=== PATIENT | female | born 1965 | race Caucasian/White ===

== ENCOUNTER 2020-07-17 16:23 | Observation (INO) ==
[~2020-07-17 16:23] MED LIST: DIPRIVAN VIAL ONE; NEOSTIGMINE INJ ONE; NORCURON INJ 10 MG VIAL ONE; QUELICIN (OR ANECTINE) ONE; ROBINUL ONE; SUPRANE ONE; VERSED ONE; ZOFRAN INJ 4 MG VIAL ONE
--- NOTE | 2020-07-17 18:27 | DR.H&P ---
H&P - History & Physical for Day of: H&P Date: 07/17/20 - Chief Complaint Chief Complaint: RIGHT UPPER ABDOMINAL PAIN, N/V, "GALLSTONES" - History of Present Illness History of Present Illness: PT IS [id number] ADMITTED WITH CO INTRACTABLE RIGHT UPPER ABDOMINAL PAIN RADIATES TO RIGHT SIDE MID BACK. PT REPORTS SHE HAD NOT BEEN ABLE TO EAT SINCE WEDNESDAY. PT HAD US CONFIRMING GALLSTONES WITH CHOLECYSTITIS. PT DENIES ANY KNOWN CARDIAC HISTORY OR DIABETES. PT ADMITTED FOR TREATMENT OF ACUTE ILLNESS, SURGICAL CONSULT. - Past Medical History Past Medical History: Arthritis - Family History Family Medical History: Diabetes Mellitus, Hypertension - Social History Does patient currently use any type of tobacco product: Yes Have you used tobacco products in the last 12 months: Yes Type of Tobacco Use: Cigarettes Does any household member use tobacco: No Alcohol Use: None Drug Use: None Risks, benefits, and alternatives of opioids discussed: No Prescription drug monitoring program results: PDMP reviewed and no concerns identified - Review of Systems Constitutional: No Symptoms Reported Eyes: No Symptoms Reported ENT: No Symptoms Reported Respiratory: No Symptoms Reported Cardiovascular: No Symptoms Reported Gastrointestinal: Nausea, Vomiting, Abdominal Pain Genitourinary: No Symptoms Reported Musculoskeletal: No Symptoms Reported Skin: No Symptoms Reported Neurological: No Symptoms Reported Oriented: Normal Eyes: Normal Ear: Normal Nose: Normal Throat: Normal Respiratory: RLL Diminished, LLL Diminished Cardiovascular: Normal, Irregular Auscultation: Bowel Sounds: Normal Palpation: Normal Tenderness: RUQ, Moderate Skin: Decreased Turgur Musculoskeletal: Normal Psychiatric: Anxiety Affect: Anxious Speech Pattern: Clear, Appropriate - Assessment/Plan (1) Acute cholecystitis Status: Acute Plan: ADMIT, NPO AFTER MIDNIGHT. IV HYDRATION CXR ON ADMISSION, PPI. CONSULT DR MATHUR, ADMISSION LABS CBC CMP AMYLASE LIPASE. UA
[2020-07-17 20:40] LABS: BASOPHILS # (AUTO) 0.1 X10^3/uL (0.0-0.1); BASOPHILS % (AUTO) 0.6 % (0.2-1.0); EOSINOPHILS # (AUTO) 0.1 x10^3/uL (0.0-0.2); EOSINOPHILS % (AUTO) 0.5 % (0.9-2.9); HEMATOCRIT 46.1 % (36.0-47.0); HEMOGLOBIN 15.5 g/dL (12.0-16.0); LYMPHOCYTES # (AUTO) 1.7 X10^3/uL (1.3-2.9); LYMPHOCYTES % (AUTO) 16.6 % (21.0-51.0); MEAN CORPUSCULAR HEMOGLOBIN 31.9 pg (27.0-34.0); MEAN CORPUSCULAR HGB CONC 33.7 g/dL (33.0-35.0); MEAN CORPUSCULAR VOLUME 94.7 fL (80.0-100.0); MEAN PLATELET VOLUME 8.1 fL (7.4-11.0); MONOCYTES # (AUTO) 0.5 x10^3/uL (0.3-0.8); MONOCYTES % (AUTO) 4.8 % (0.0-13.0); NEUTROPHILS # (AUTO) 8.1 x10^3/uL (2.2-4.8); NEUTROPHILS % (AUTO) 77.5 % (42.0-75.0); PLATELET COUNT 267 X10^3/uL (150.0-450.0); RED BLOOD COUNT 4.87 X10^6/uL (3.5-5.4); RED CELL DISTRIBUTION WIDTH 14.4 % (11.6-16.5); WHITE BLOOD COUNT 10.4 X10^3/uL (3.6-10.0)
[2020-07-17 20:48] LABS: ALANINE AMINOTRANSFERASE 18 Units/L (12-78); ALBUMIN 3.9 g/dL (3.4-5.0); ALKALINE PHOSPHATASE 92 Units/L (46-116); AMYLASE 41 Units/L (25-115); ASPARTATE AMINO TRANSFERASE 14 Units/L (15-37); BLOOD UREA NITROGEN 11 mg/dL (7-18); CALCIUM 9.4 mg/dL (8.5-10.1); CARBON DIOXIDE 27.1 mmol/L (21-32); CHLORIDE 104 mmol/L (98-107); CREATININE 0.91 mg/dL (0.55-1.02); LIPASE 110 Units/L (73-393); SODIUM 141 mmol/L (136-145); TOTAL PROTEIN 7.8 g/dL (6.4-8.2); eGFR NON BLACK RACES > 60 (>60)
[2020-07-17] MEDS ORDERED: NS 1000 ML 1,000 ML ONE (21:09)
--- NOTE | 2020-07-17 21:35 | RAD ---
EXAM: CHEST X-RAYHISTORY: Screening CXR. Preoperative evaluation for cardiac and respiratory status.TECHNIQUE: AP chest x-ray dated 07/17/2020 at 6:06 PM.COMPARISON: None available.FINDINGS:The heart size and mediastinum are within normal limits. The lung ortega and costophrenic angles are clear. There is no acute parenchymal infiltrate, pleural effusion, or pneumothorax seen. The visualized bony structures are within normal limits.IMPRESSION:1. No evidence for acute cardiopulmonary disease seen.Electronically signed by: Tico West (Jul 17, 2020 21:34:06)
[2020-07-17] MEDS: NS 1000 ML 1,000 ML IV SCH (21:40)
[2020-07-17] MEDS: TYLENOL 325 MG TAB PO PRN (22:40)
[2020-07-17] MEDS ORDERED: NICOTINE PATCH TD ONE (23:32)
[2020-07-18 03:13] VITALS: BMI 38.0
[2020-07-18 05:39] LABS: BASOPHILS % (AUTO) 0.6 % (0.2-1.0); EOSINOPHILS # (AUTO) 0.1 x10^3/uL (0.0-0.2); EOSINOPHILS % (AUTO) 1.4 % (0.9-2.9); HEMATOCRIT 42.3 % (36.0-47.0); HEMOGLOBIN 14.2 g/dL (12.0-16.0); LYMPHOCYTES # (AUTO) 1.6 X10^3/uL (1.3-2.9); LYMPHOCYTES % (AUTO) 23.3 % (21.0-51.0); MEAN CORPUSCULAR HEMOGLOBIN 31.7 pg (27.0-34.0); MEAN CORPUSCULAR HGB CONC 33.5 g/dL (33.0-35.0); MEAN CORPUSCULAR VOLUME 94.8 fL (80.0-100.0); MEAN PLATELET VOLUME 8.6 fL (7.4-11.0); MONOCYTES # (AUTO) 0.5 x10^3/uL (0.3-0.8); MONOCYTES % (AUTO) 7.2 % (0.0-13.0); NEUTROPHILS # (AUTO) 4.7 x10^3/uL (2.2-4.8); NEUTROPHILS % (AUTO) 67.5 % (42.0-75.0); PLATELET COUNT 242 X10^3/uL (150.0-450.0); RED BLOOD COUNT 4.47 X10^6/uL (3.5-5.4); RED CELL DISTRIBUTION WIDTH 14.3 % (11.6-16.5); WHITE BLOOD COUNT 6.9 X10^3/uL (3.6-10.0)
[2020-07-18 05:42] LABS: BILIRUBIN,URINE NEGATIVE (NEGATIVE); BLOOD/HEMOGLOBIN,URINE NEGATIVE (NEGATIVE); GLUCOSE, URINE NEGATIVE (NEGATIVE); KETONES,URINE NEGATIVE (NEGATIVE); LEUKOCYTE ESTERASE ,URINE NEGATIVE (NEGATIVE); NITRITES,URINE NEGATIVE (NEGATIVE); PROTEIN,URINE NEGATIVE (NEGATIVE); UROBILINOGEN,URINE NORMAL (NORMAL)
[2020-07-18 05:45] LABS: ALANINE AMINOTRANSFERASE 16 Units/L (12-78); ALBUMIN 3.1 g/dL (3.4-5.0); ALKALINE PHOSPHATASE 77 Units/L (46-116); ASPARTATE AMINO TRANSFERASE 18 Units/L (15-37); BLOOD UREA NITROGEN 13 mg/dL (7-18); CALCIUM 8.8 mg/dL (8.5-10.1); CARBON DIOXIDE 25.6 mmol/L (21-32); CHLORIDE 108 mmol/L (98-107); COR CA(FOR HYPOALB) 9.5 mg/dL (8.5-10.1); CREATININE 0.89 mg/dL (0.55-1.02); SODIUM 142 mmol/L (136-145); TOTAL PROTEIN 6.5 g/dL (6.4-8.2); eGFR NON BLACK RACES > 60 (>60)
[2020-07-18 05:46] LABS: APPEARANCE,URINE CLEAR (CLEAR); COLOR,URINE PALE YELLOW (YELLOW)
[2020-07-18] MEDS: NS 1000 ML 1,000 ML IV SCH ×3 (08:59→23:26)
[2020-07-18] MEDS: NICOTINE PATCH TD SCH (09:00)
[2020-07-18] MEDS ORDERED: FENTANYL INJ 250 mcg ONE (09:44)
[2020-07-18] MEDS ORDERED: LR 1000 ML IV 1,000 ML IV ONE (10:04)
[2020-07-18] MEDS ORDERED: BACTROBAN TOPICAL OINT ONE (11:01)
[2020-07-18] MEDS ORDERED: REGLAN INJ 10 MG VIAL IVP PRN (11:17)
[2020-07-18] MEDS ORDERED: PHENERGAN INJ 25 MG IM PRN (11:17)
[2020-07-18] MEDS ORDERED: ZOFRAN INJ 4 MG VIAL IVP PRN (11:17)
[2020-07-18] MEDS ORDERED: BENADRYL INJ 50 MG VIAL IVP PRN (11:17)
[2020-07-18] MEDS: DILAUDID INJ IVP PRN ×6 (11:23→20:56)
[2020-07-18] MEDS ORDERED: ZOFRAN INJ 4 MG VIAL ONE (20:45)
[2020-07-18] MEDS: ZOFRAN INJ 4 MG VIAL IVP PRN (20:56)
[2020-07-19] MEDS: TYLENOL 325 MG TAB PO PRN (03:02)
[2020-07-19] MEDS: ZOFRAN INJ 4 MG VIAL IVP PRN ×2 (03:06→08:52)
[2020-07-19 08:03] VITALS: BP 140/73
[2020-07-19] MEDS ORDERED: MOTRIN TAB 800 MG PO PRN (08:05)
[2020-07-19] MEDS: NICOTINE PATCH TD SCH (08:51)
[2020-07-19] MEDS ORDERED: DILAUDID INJ IVP PRN (09:00)
--- NOTE | 2020-07-19 09:18 | DR.PROGNOT ---
Hospital Progress Notes - Progress Note for Day of: Progress Note Date: 07/19/20 - Chief Complaint Chief Complaint: s/p Lap nini . moderate abdominal pain and nausea . CBC and LFT are normal . afebrile - Past Medical Family Social History Past Med/Fam/Surg Hx: No changes since H&P Allergies: Allergies amoxicillin Allergy (Verified 07/17/20 21:14) clindamycin Allergy (Verified 07/17/20 21:14) codeine Allergy (Verified 07/17/20 21:14) hydrocodone [From Lortab] Allergy (Verified 07/17/20 21:14) oxycodone [From Percocet] Allergy (Verified 07/17/20 21:14) Penicillins Allergy (Verified 07/17/20:14) sulfamethoxazole [From Bactrim] Adverse Reaction (Verified 07/17/20 21:14) CAUSES ITCHING trimethoprim [From Bactrim] Adverse Reaction (Verified 07/17/20 21:14) CAUSES ITCHING - Review Of Systems ROS: No change since H&P - Vital Signs Vital Signs: Temperature 98.7 F Pulse Rate [Left Brachial] 64 Pulse Rate [Right Radial] 76 Pulse Rate 74 Respiratory Rate 20 Blood Pressure [Left Arm] 140/73 Blood Pressure [Right Arm] 169/83 Blood Pressure 138/79 O2 Sat by Pulse Oximetry 97 - Physical Exam Oriented: Normal Eyes: Normal Ear: Normal Nose: Normal Throat: Normal Cardiovascular: Normal, Irregular GI:Auscultation: Normal GI:Palpation: Normal GI: Tenderness: RUQ, Moderate Skin: Decreased Turgur Musculoskeletal: Normal Psychiatric: Anxiety Mood Description: Calm Affect: Anxious Speech Pattern: Clear, Appropriate - Laboratory and Diagnostics Result Diagrams: 07/18/20 04:30 07/18/20 04:30 Labs: Laboratory WBC 6.9 X10^3/uL (3.6-10.0) 07/18/20 04:30 RBC 4.47 X10^6/uL (3.5-5.4) 07/18/20 04:30 Hgb 14.2 g/dL (12.0-16.0) 07/18/20 04:30 Hct 42.3 % (36.0-47.0) 07/18/20 04:30 MCV 94.8 fL (80.0-100.0) 07/18/20 04:30 MCH 31.7 pg (27.0-34.0) 07/18/20 04:30 MCHC 33.5 g/dL (33.0-35.0) 07/18/20 04:30 RDW 14.3 % (11.6-16.5) 07/18/20 04:30 Plt Count 242 X10^3/uL (150.0-450.0) 07/18/20 04:30 MPV 8.6 fL (7.4-11.0) 07/18/20 04:30 Neut % (Auto) 67.5 % (42.0-75.0) 07/18/20 04:30 Lymph % (Auto) 23.3 % (21.0-51.0) 07/18/20 04:30 Stone % (Auto) 7.2 % (0.0-13.0) 07/18/20 04:30 Eos % (Auto) 1.4 % (0.9-2.9) 07/18/20 04:30 Baso % (Auto) 0.6 % (0.2-1.0) 07/18/20 04:30 Neut # (Auto) 4.7 x10^3/uL (2.2-4.8) 07/18/20 04:30 Lymph # (Auto) 1.6 X10^3/uL (1.3-2.9) 07/18/20 04:30 Stone # (Auto) 0.5 x10^3/uL (0.3-0.8) 07/18/20 04:30 Eos # (Auto) 0.1 x10^3/uL (0.0-0.2) 07/18/20 04:30 Baso # (Auto) 0.0 X10^3/uL (0.0-0.1) 07/18/20 04:30 Absolute Nucleated RBC 0.1 /100WBC 07/18/20 04:30 Sodium 142 mmol/L (136-145) 07/18/20 04:30 Corrected Sodium TNP 07/18/20 04:30 Potassium 3.8 mmol/L (3.5-5.1) 07/18/20 04:30 Chloride 108 mmol/L (98-107) H 07/18/20 04:30 Carbon Dioxide 25.6 mmol/L (21-32) 07/18/20 04:30 BUN 13 mg/dL (7-18) 07/18/20 04:30 Creatinine 0.89 mg/dL (0.55-1.02) 07/18/20 04:30 Est GFR (MDRD) Af Amer > 60 (>60) 07/18/20 04:30 Est GFR (MDRD) Non-Af > 60 (>60) 07/18/20 04:30 Glucose 96 mg/dL (65-99) 07/18/20 04:30 Calcium 8.8 mg/dL (8.5-10.1) 07/18/20 04:30 Corrected Calcium 9.5 mg/dL (8.5-10.1) 07/18/20 04:30 Total Bilirubin 0.30 mg/dL (0.2-1.0) 07/18/20 04:30 AST 18 Units/L (15-37) 07/18/20 04:30 ALT 16 Units/L (12-78) 07/18/20 04:30 Alkaline Phosphatase 77 Units/L (46-116) 07/18/20 04:30 Total Protein 6.5 g/dL (6.4-8.2) 07/18/20 04:30 Albumin 3.1 g/dL (3.4-5.0) L 07/18/20 04:30 Globulin 3.4 g/dL (2.5-4.5) 07/18/20 04:30 Albumin/Globulin Ratio 0.9 Ratio (1.1-2.1) L 07/18/20 04:30 Amylase 41 Units/L (25-115) 07/17/20 20:27 Lipase 110 Units/L (73-393) 07/17/20 20:27 Specimen Type Clean catch urine 07/18/20 04:42 Urine Color Pale yellow (YELLOW) 07/18/20 04:42 Urine Appearance Clear (CLEAR) 07/18/20 04:42 Urine pH 6.0 (5.0 - 8.0) 07/18/20 04:42 Ur Specific [place] 1.010 (1.000-1.030) 07/18/20 04:42 Urine Protein Negative (NEGATIVE) 07/18/20 04:42 Urine Glucose (UA) Negative (NEGATIVE) 07/18/20 04:42 Urine Ketones Negative (NEGATIVE) 07/18/20 04:42 Urine Occult Blood Negative (NEGATIVE) 07/18/20 04:42 Urine Nitrite Negative (NEGATIVE) 07/18/20 04:42 Urine Bilirubin Negative (NEGATIVE) 07/18/20 04:42 Urine Urobilinogen Normal (NORMAL) 07/18/20 04:42 Ur Leukocyte Esterase Negative (NEGATIVE) 07/18/20 04:42 SARS CoV-2 RNA Rapid AYALA Negative (NEGATIVE) 07/17/20 18:03 Tissue Pathology To follow 07/18/20 10:50 - Assessment and Plan 1: Post Op lap nini for acute and chronic calculus cholecystitis . to advance diet . light activities . F/U in 10 days . - Problem Patient Problems: Patient Problems Acute cholecystitis (Acute) K81.0
== END 2020-07-19 11:20 | disposition home or self-care (01) ==
LOC: MED/SURG
PROVIDERS: ADMIT Internal Medicine; ATTEND Internal Medicine
DX: K80.12 Calculus of gallbladder with acute and chronic cholecystitis without obstruction; K66.0 Peritoneal adhesions (postprocedural) (postinfection); K82.8 Other specified diseases of gallbladder; Z20.828 Contact with and (suspected) exposure to other viral communicable diseases; R10.11 Right upper quadrant pain